=== PATIENT | female | born 1960 | race Caucasian/White ===

== ENCOUNTER 2017-07-12 19:41 | Emergency (ER) | END 2017-07-12 20:55 | disposition home or self-care (01) | DX: K57.92 Diverticulitis of intestine, part unspecified, without perforation or abscess without bleeding (principal); I10 Essential (primary) hypertension | CPT/HCPCS: Z7502; Z7610 ==

== ENCOUNTER 2019-01-30 10:49 | Day surgery (SDC) | payer OTHER ==
[~2019-01-30] VITALS: Ht 165.1 cm; Wt 83.7 kg
[~2019-01-30 10:49] MED LIST: AMOX1TAB10 PO; CIPR500T4 PO; HYDR-3980 PO; IBUP-1542 PO; LOSA1TAB28 PO; METR500T PO; NEBI5TAB9 PO; OMEP40CA6 PO; ONDA4TAB14 PO; ONDA4TAB35 PO; SIMV20TA2 PO; SUMA100T3 PO
[2019-01-30 12:17] VITALS: Ht 165.1 cm; Wt 83.7 kg
[2019-01-30] MEDS ORDERED: MELO15TA30 PO (12:36)
[2019-01-30] MEDS ORDERED: TRAM100T27 PO (12:36)
[2019-01-30] MEDS ORDERED: LORA-186 PO (12:36)
[2019-01-30] MEDS ORDERED: CHOL100062 PO (12:36)
[2019-01-30] MEDS ORDERED: SIMV20TA PO (12:36)
[2019-01-30] MEDS ORDERED: CITA20TA11 PO (12:36)
[2019-01-30] MEDS ORDERED: OXYBUTYNIN PO (12:36)
[2019-01-30] MEDS ORDERED: DICY10CA40 (12:36)
--- NOTE | 2019-01-30 13:06 | PREAC ---
Date/Time of Note Date/Time of Note DATE: 01/30/19 TIME: 13:03 Anesthesia Eval and Record Evaluation Time Pre-Procedure Interview DATE: 01/30/19 TIME: 13:03 Age 58 Sex female NPO: 8 hrs Preoperative diagnosis abdominal pain, Colon screening Planned procedure EGD, Colonscopy Past Medical History Past Medical History: Includes Cardio: HTN, Dyslipidemia GI: GERD Surgery & Anesthesia Issues No known issue Meds Anticoagulation: No Beta [place] within 24 hr: No Reason Beta [place] not given: Pt. not on B-[place] Reported Medications Simvastatin* (Zocor*) 20 Mg Tablet, 20 MG PO QHS, #30 TAB 01/30/19 Tramadol Hcl* (Tramadol* ER) 100 Mg Tab.er.24h, 50 MG PO DAILY, #30 TAB 01/30/19 [Oxybutynin] No Conflict Check, PO 01/30/19 Meloxicam* (Mobic*) 15 Mg Tablet, 15 MG PO DAILY, #30 TAB 01/30/19 Dicyclomine HCl (Dicyclomine HCl) 10 Mg Capsule 01/30/19 Loratadine* (Claritin*) 10 Mg Tablet, 10 MG PO DAILY, TAB 01/30/19 Cholecalciferol* (Vitamin D3*) 1,000 Unit Tablet, 1000 UNIT PO DAILY, TAB 01/30/19 Citalopram Hydrobromide* (Celexa*) 20 Mg Tablet, 20 MG PO DAILY, #30 TAB 01/30/19 Losartan-Hydrochlorothiazide (Losartan-HCTZ) 100-12.5 Mg Tab, 1 TAB PO DAILY, TAB 04/06/15 Discontinued Reported Medications Sumatriptan Succinate* (Imitrex*) 100 Mg Tablet, 100 MG PO BID PRN for HEADACHE, TAB May repeat after 2 hours if needed; MAX 200 mg/24 hours 04/06/15 Omeprazole* (Omeprazole*) 40 Mg Capsule.dr, 40 MG PO DAILY, CAP 04/06/15 Nebivolol* (Bystolic*) 5 Mg Tab, 5 MG PO DAILY, TAB 04/06/15 Simvastatin (Simvastatin) 20 Mg Tablet, 20 MG PO HS, TAB 04/06/15 Discontinued Scripts Metronidazole* (Flagyl*) 500 Mg Tablet, 500 MG PO TID for 7 Days, TAB Prov:NATHAN KENDRICK MD 07/12/17 Ciprofloxacin Hcl* (Ciprofloxacin Hcl*) 500 Mg Tablet, 500 MG PO BID for 7 Days, TAB Prov:NATHAN KENDRICK MD 07/12/17 Ondansetron (Ondansetron Odt) 4 Mg Tab.rapdis, 4 MG PO Q6H PRN for NAUSEA AND/OR VOMITING, #30 TAB Prov:NATHAN KENDRICK MD 07/12/17 Hydrocodone/Acetaminophen (Morrison 10-325 Tablet) 1 Each Tablet, 1 TAB PO Q6H PRN for PAIN, #16 TAB Prov:NATHAN KENDRICK MD 07/12/17 Amoxicillin/Potassium Clav (Amox-Clav 875-125 mg Tablet) 875-125 mg Tab, 1 TAB PO BID for 7 Days, #14 TAB Prov:YANIRA CORETZ, [employer] 08/08/16 Ibuprofen* (Motrin*) 600 Mg Tab, 600 MG PO Q6, #30 TAB Prov:YANIRA CORTEZ, [employer] 08/08/16 Ondansetron Hcl* (Zofran* ODT) 4 mg -ODT Tab.disper, 4 MG PO Q6 PRN for NAUSEA AND/OR VOMITING, #14 TAB Prov:SAMUEL DE LEON MD 07/26/15 Metronidazole* (Flagyl*) 500 Mg Tablet, 500 MG PO QID for 10 Days, TAB Prov:SAMUEL DE LEON MD 07/26/15 Meds reviewed: Yes Allergies Coded Allergies: No Known Drug Allergies (Verified Allergy, Mild, 08/08/16) Allergies Reviewed: Yes Labs/Studies Labs Reviewed: Reviewed by anesthesiologist test: N/A Studies: ECG Pre-procedure Exam Last vitals BP:112/56, P:78, Spo2:100%, T:98,9 Airway: Adequate mouth opening, Adequate thyromental dist Mallampati: Mallampati II Teeth: Normal Lung: Normal Heart: Normal ASA Physical Status ASA physical status: 3 Emergency: None Planned Anesthetic General/MAC: MAC Planned Pain Management Parenteral pain med Pre-operative Attestations Prior to commencing anesthesia and surgery, the patient was re-evaluated, there was verification of: *The patient's identity *The results of appropriate recent lab work and preoperative vital signs *The above evaluation not changing prior to induction *Anesthetic plan, risk benefits, alternative and complications discussed with patient/family; questions answered; patient/family understands, accepts and wishes to proceed. LALI MEDINA MD January 30, 2019 13:06
[2019-01-30] MEDS ORDERED: PROPOFOL 60 ML ONE (13:07)
[2019-01-30] MEDS ORDERED: LIDOCAINE 2% (SDV) 5 ML INJ ONE (13:07)
--- NOTE | 2019-01-30 13:43 | PAC ---
Date/Time of Note Date/Time of Note DATE: 01/30/19 TIME: 13:42 Post-Anesthesia Notes Post-Anesthesia Note Activity: WNL Respiratory function: WNL Cardiovascular function: WNL Mental status: Baseline Pain reasonably controlled: Yes Hydration appropriate: Yes Nausea/Vomiting absent: Yes Comments BP:118/67,P:88, Spo2:100%, T:98,9 LALI MEDINA MD January 30, 2019 13:43
[2019-01-30 14:16] VITALS: BP 123/63; PULSE 64; RESP 16
[2019-01-30 14:22] VITALS: BP 128/62; PULSE 83; RESP 18
== END 2019-01-30 16:05 | disposition home or self-care (01) ==
LOC: GIL 10:49
PROVIDERS: ATTEND Internal Medicine Gastroenterology
DX: Z12.11 Encounter for screening for malignant neoplasm of colon (principal); K64.8 Other hemorrhoids; K57.30 Diverticulosis of large intestine without perforation or abscess without bleeding; D12.2 Benign neoplasm of ascending colon; K21.0 Gastro-esophageal reflux disease with esophagitis; K44.9 Diaphragmatic hernia without obstruction or gangrene; I10 Essential (primary) hypertension
CPT/HCPCS: 43239; 45385; 88305; 88312; 88313; Z7610